=== PATIENT | female | born 1945 | race Caucasian/White ===

== ENCOUNTER → 2020-05-06 | Outpatient (CLI) | payer MEDICARE ==
[~2020-05-06] MED LIST: ACET-1600 PO; IBUP-1223 PO; LEVO75TA PO; METF500T17 PO; MULT-658 PO; MV-M1TAB29 PO; PRAV20TA2 PO
[2020-05-06 12:05] LABS: BASOPHILS # (AUTO) 0.05 x10^3/uL (0-0.1); BASOPHILS % (AUTO) 1 % (0-1); EOSINOPHILS % (AUTO) 4 % (1-7); LYMPHOCYTES # (AUTO) 2.31 x10^3/uL (1-3.4); LYMPHOCYTES % (AUTO) 28 % (22-44); MD NO; MEAN CORPUSCULAR HEMOGLOBIN 30.2 pg (27.0-34.8); MEAN CORPUSCULAR HGB CONC 33.2 g/dL (32.4-35.8); MONOCYTES % (AUTO) 6 % (2-9); NEUTROPHILS % (AUTO) 62 % (42-75); PLATELET COUNT 386 x10^3/uL (130-400); RED BLOOD COUNT 4.34 x10^6/uL (3.82-5.3); RED CELL DISTRIBUTION WIDTH 13.8 % (9.6-15.2)
[2020-05-06 12:14] LABS: INTERNATIONAL NORMALIZED RATIO 0.9 (0.93-1.1); PROTHROMBIN TIME 9.5 Seconds (9.6-11.5)
[2020-05-06 12:26] LABS: ALBUMIN 4.3 g/dL (3.4-5.0); ANION GAP 6 mmol/L (5-15); CALCIUM 9.8 mg/dL (8.5-10.1); CHLORIDE 106 mmol/L (98-107)
[2020-05-06 12:30] LABS: ALANINE AMINOTRANSFERASE 36 U/L (12-78); ALKALINE PHOSPHATASE 92 U/L (45-117); BILIRUBIN,TOTAL 0.4 mg/dL (0.2-1.0); CREATININE 0.76 mg/dL (0.55-1.02); TOTAL PROTEIN 8.3 g/dL (6.4-8.2)
== END | disposition home or self-care (01) ==
LOC: STAR 10:44
PROVIDERS: ATTEND Obstetrics & Gynecology
DX: Z01.818 Encounter for other preprocedural examination (principal); R87.623 High grade squamous intraepithelial lesion on cytologic smear of vagina (HGSIL)
CPT/HCPCS: 36415; 71046; 80053; 85025; 85610; 85730

== ENCOUNTER 2020-05-10 06:37 | Day surgery (SDC) | payer MEDICARE, BC ==
[~2020-05-10] VITALS: Ht 165.1 cm; Wt 76.2 kg
[2020-05-10 07:00] VITALS: BP 159/77
[2020-05-10] MEDS ORDERED: CHLORHEXIDINE 15 ML UDC MM ONE (07:30)
[2020-05-10] MEDS ORDERED: CEFOTETAN PMX 2GM/50ML 50 ML IV ONE (07:30)
[2020-05-10] MEDS ORDERED: LACTATED RINGERS 1,000 ML IV SCH (08:00)
[2020-05-10] MEDS ORDERED: SILVER SULF. CRM 1% , 25GM ONE (09:56)
[2020-05-10] MEDS ORDERED: BUPIVACAINE/PF-EPI 0.25% 1:200K ONE (09:56)
[2020-05-10] MEDS ORDERED: FENTANYL PF 100 MCG/2ML ONE (10:00)
[2020-05-10] MEDS ORDERED: MIDAZOLAM 1 MG/ML, 2ML ONE (10:00)
[2020-05-10] MEDS ORDERED: LABETALOL 5MG/ML, 20ML IV PRN (11:00)
[2020-05-10] MEDS ORDERED: MEPERIDINE/PF 25MG/0.5ML IVPush PRN (11:00)
[2020-05-10] MEDS ORDERED: OXYcodone 5 MG/5 ML ORAL.SOL UDC PO PRN (11:00)
[2020-05-10] MEDS ORDERED: FENTANYL PF 100 MCG/2ML IV PRN (11:00)
[2020-05-10] MEDS ORDERED: ACETAMINOPHEN 325 MG TABLET PO PRN (11:00)
[2020-05-10] MEDS ORDERED: hydrALAzine 20 MG/ML, 1ML IV PRN (11:00)
[2020-05-10] MEDS ORDERED: HYDROmorphone 2 MG/ML, 1ML IVPush PRN (11:00)
[2020-05-10] MEDS ORDERED: PROMETHAZINE 25 MG/ML, 1ML IV PRN (11:00)
[2020-05-10] MEDS ORDERED: ALBUTEROL SULFATE 2.5 MG/3 ML NPPB PRN (11:00)
[2020-05-10] MEDS ORDERED: DIAZEPAM 5 MG/ML, 2ML IVPush PRN (11:00)
[2020-05-10] MEDS ORDERED: KETOROLAC 30 MG/1 ML IV PRN (11:00)
[2020-05-10] MEDS ORDERED: GLYCOPYRROLATE 0.2MG/1ML, 5ML ONE (11:02)
[2020-05-10] MEDS ORDERED: ONDANSETRON 2MG/ML, 2ML ONE (11:02)
[2020-05-10] MEDS ORDERED: CEFAZOLIN 1,000 MG ONE (11:02)
[2020-05-10] MEDS ORDERED: SUCCINYLCHOLINE 20 MG/ML, 10ML ONE (11:02)
[2020-05-10] MEDS ORDERED: ROCURONIUM 10MG/ML,5ML ONE (11:02)
[2020-05-10] MEDS ORDERED: PROPOFOL 10 MG/ML, 20ML ONE (11:02)
[2020-05-10] MEDS ORDERED: NEOSTIGMINE 1 MG/ML, 10ML ONE (11:02)
[2020-05-10] MEDS ORDERED: DEXAMETHASONE 4 MG/ML, 1ML ONE (11:02)
[2020-05-10] MEDS ORDERED: KETOROLAC 30 MG/1 ML ONE (11:46)
[2020-05-10] MEDS ORDERED: ACETAMINOPHEN 650 MG/20.3 ML UDC ONE (11:46)
[2020-05-10] MEDS ORDERED: MEPERIDINE/PF 25MG/ML,1ML ONE (11:53)
== END 2020-05-10 13:20 | disposition home or self-care (01) ==
LOC: OUT 06:37
PROVIDERS: ATTEND Obstetrics & Gynecology
DX: R87.623 High grade squamous intraepithelial lesion on cytologic smear of vagina (HGSIL) (principal); N90.1 Moderate vulvar dysplasia; E11.9 Type 2 diabetes mellitus without complications; E03.9 Hypothyroidism, unspecified; M19.90 Unspecified osteoarthritis, unspecified site; Z90.49 Acquired absence of other specified parts of digestive tract; Z98.890 Other specified postprocedural states; Z79.899 Other long term (current) drug therapy; Z91.048 Other nonmedicinal substance allergy status; Z80.0 Family history of malignant neoplasm of digestive organs
CPT/HCPCS: 36415; 56620; 82962; 87635; 88305; J0690; J1100; J1885; J2175; J2250; J2405; J2704; J3010; J3490; J7120; J2710; J0330